=== PATIENT | male | born 1990 | race Caucasian/White ===

== ENCOUNTER 2018-03-31 16:30 | Emergency (ER) | payer OTHER ==
[2018-03-31 16:41] VITALS: PULSE 76; RESP 18; TEMP 98.2; O2SAT 99
--- NOTE | 2018-03-31 17:51 | ED PDOC ---
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 He states that he was assisting with an IV push when pressure built up and broke, splashing blood and saline onto himself. At present, he denies any medical complaints. PMD: non provided Past Medical History Reviewed: Historical Data, Nursing Documentation, Vital Signs Vital Signs: Last Vital Signs Temp 98.2 F 03/31/18 16:37 Pulse 76 03/31/18 16:37 Resp 18 03/31/18 16:37 BP Pulse Ox 99 03/31/18 18:01 - Medical History PMH: No Chronic Diseases - Surgical History Surgical History: No Surg Hx - Family History Family History: States: Unknown Family Hx - Home Medications Home Medications: Ambulatory Orders Medication Instructions Recorded Permethrin 5% [Permethrin 5% Cream] 60 gm EXT ONCE #0 tube 12/14/11 - Allergies Allergies/Adverse Reactions: Allergies Allergy/AdvReac Type Severity Reaction Status Date / Time No Known Allergies Allergy Verified 12/13/11 23:37 Review of Systems ROS Statement: Except As Marked, All Systems Reviewed And Found Negative Physical Exam - Reviewed Nursing Documentation Reviewed: Yes Vital Signs Reviewed: Yes - Physical Exam Appears: Positive for: No Acute Distress Head Exam: Positive for: ATRAUMATIC, NORMAL INSPECTION, NORMOCEPHALIC Skin: Positive for: Normal Color Eye Exam: Positive for: Normal appearance, EOMI, PERRL ENT: Positive for: Normal ENT Inspection Neck: Positive for: Normal Cardiovascular/Chest: Positive for: Regular Rate, Rhythm Respiratory: Positive for: Normal Breath Sounds. Negative for: Respiratory Distress Gastrointestinal/Abdominal: Positive for: Normal Exam, Soft. Negative for: Tenderness Extremity: Positive for: Normal ROM (upper/lower) Neurologic/Psych: Positive for: Alert (x3), biometric screener II-XII (grossly intact), Oriented, Gait (steady). Negative for: Motor/Sensory Deficits, Aphasia - ECG O2 Sat by Pulse Oximetry: 99 (RA) Pulse Ox Interpretation: Normal Medical Decision Making Medical Decision Making: Initial Impression: Body Fluid Exposure Initial Plan: * Hepatitis panel (acute) * Rapid HIV screen * RPR PT HIV (-) Source patient HIV (-) Scribe Attestation: Documented by Clary Ricardo, acting as a scribe for Marlene Mims PA-C. Provider Scribe Attestation: All medical record entries made by the Scribe were at my direction and personally dictated by me. I have reviewed the chart and agree that the record accurately reflects my personal performance of the history, physical exam, medical decision making, and the department course for this patient. I have also personally directed, reviewed, and agree with the discharge instructions and disposition. Disposition - Clinical Impression Clinical Impression: Exposure to blood - Patient ED Disposition Is Patient to be Admitted: No Counseled Patient/Family Regarding: Diagnosis, Need For Followup - Disposition Disposition: Routine/Home Disposition Time: 21:17 Condition: STABLE Instructions: Blood or Body Fluid Exposure Forms: [employer] ([place] Citizen)
[2018-03-31 21:23] LABS: HEPATITIS B SURFACE AG Negative (NEGATIVE)
[2018-03-31 21:28] LABS: HEPATITIS B CORE AB NEGATIVE (NEGATIVE)
[2018-03-31 21:41] LABS: HEPATITIS C ANTIBODY NEGATIVE (NEGATIVE)
[2018-03-31 22:17] LABS: HEPATITIS A IGM NEGATIVE (NEGATIVE)
== END 2018-03-31 21:44 | disposition home or self-care (01) ==
LOC: H.ER 16:30
DX: Z77.21 Contact with and (suspected) exposure to potentially hazardous body fluids (principal); Y99.0 Civilian activity done for income or pay

== ENCOUNTER 2018-07-30 09:33 | Emergency (ER) | payer OTHER ==
[2018-07-30 09:35] VITALS: BMI 27.4
[2018-07-30 09:37] VITALS: RESP 18
--- NOTE | 2018-07-30 09:57 | ED PDOC ---
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 Patient reports some nausea yesterday but no nausea now. Had subjective fever and chills last night. Denies any vomiting, dysuria, dizziness or blurry vision. Denies any recent abx use or recent trip outside of country. Patient's partner is sick with URI symptoms. PMHx: denies Surgical hx: denies Meds: multivitamin Allergies: NKDA Past Medical History Vital Signs: Last Vital Signs Temp 98.4 F 07/30/18 09:35 Pulse 76 07/30/18 09:35 Resp 18 07/30/18 09:35 BP 111/76 07/30/18 09:35 Pulse Ox 99 07/30/18 09:35 - Family History Family History: States: Unknown Family Hx - Home Medications Home Medications: Ambulatory Orders Medication Instructions Recorded Permethrin 5% [Permethrin 5% Cream] 60 gm EXT ONCE #0 tube 12/14/11 Dicyclomine [Bentyl] 20 mg PO QID PRN #10 tab 07/30/18 - Allergies Allergies/Adverse Reactions: Allergies Allergy/AdvReac Type Severity Reaction Status Date / Time No Known Allergies Allergy Verified 12/13/11 23:37 Review of Systems ROS Statement: Except As Marked, All Systems Reviewed And Found Negative Physical Exam - Physical Exam Appears: Positive for: Well, Non-toxic, No Acute Distress Head Exam: Positive for: ATRAUMATIC, NORMOCEPHALIC Skin: Positive for: Normal Color, Warm ENT: Positive for: Normal ENT Inspection Neck: Positive for: Normal, Painless ROM, Supple Cardiovascular/Chest: Positive for: Regular Rate, Rhythm. Negative for: Murmur Respiratory: Positive for: Normal Breath Sounds. Negative for: Rales, Rhonchi Gastrointestinal/Abdominal: Positive for: Bowel Sounds, Soft, Tenderness (Mild tenderness at the mid abdomen and RLQ, no rebound tenderness or guarding. ). Negative for: Distended, Guarding, Rebound Extremity: Negative for: Pedal Edema, Calf Tenderness Neurologic/Psych: Positive for: Alert, Oriented - Laboratory Results Result Diagrams: 07/30/18 10:16 07/30/18 10:16 - ECG O2 Sat by Pulse Oximetry: 99 - Progress ED Course And Treament: 27 yo Male presents with watery diarrhea and abdominal pain x 2 days. DDX include gastroenteritis, colitis, appendicitis Plan: CBC W/ DIFF CMP Lipase UA IVF's NS CT Abdomen and pelvis with IV contrast Bentyl 20 mg IM Time 1320 Patient reports he is feeling better and had one episode of diarrhea while in ED Labs reviewed CBC, CMP unremarkable UA shows moderate blood, advised patient to f/u with PMD ([facility] information prov ided) CT A/P shows IMPRESSION: Thickened bladder wall although decompressed suggests cystitis. Unilateral, left gynecomastia. Nonspecific findings in small bowel possibly early enteritis. No obstructing lesion. Advised patient to f/u outpatient for left gynecomastia. Patient is medically stable to discharge home with PO bentyl. Advised f/u with PMD in 2-3 days if diarrhea persists. Plan d/w Dr. Nixon Disposition - Clinical Impression Clinical Impression: Diarrhea, Microscopic hematuria, Breast mass in male - Disposition Referrals: [facility] [Outside] Disposition Time: 13:30 Condition: STABLE Prescriptions: Dicyclomine [Bentyl] 20 mg PO QID PRN #10 tab PRN Reason: Pain, Moderate (4-7) Instructions: Diarrhea in Adolescents and Adults, Blood in the Urine (Hematuria) in Adults Forms: [employer] (Polish)
[2018-07-30 10:40] LABS: BASO % 0.3 % (0.0-2.0); EOS # 0.1 K/uL (0.0-0.7); EOS % 0.9 % (0.0-4.0); HEMOGLOBIN 14.6 g/dL (12.0-18.0); LYMPH # 1.3 K/uL (1.0-4.3); LYMPH % 23.1 % (20.0-40.0); MEAN CELL VOLUME 87.3 fl (80.0-94.0); MEAN CORPUSCULAR HEMOGLOBIN 28.9 pg (27.0-31.0); MEAN CORPUSCULAR HGB CONC 33.2 g/dL (33.0-37.0); MEAN PLATELET VOLUME 7.4 fl (7.2-11.7); MONO # 0.7 K/uL (0.0-0.8); MONO % 13.1 % (0.0-10.0); NEUT # 3.4 K/uL (1.8-7.0); NEUT % 62.6 % (50.0-75.0); NRBC % 0.2 % (0.0-0.0); RBC 5.05 Mil/uL (4.40-5.90); RED CELL DISTRIBUTION WIDTH 14.1 % (11.5-14.5); WHITE BLOOD COUNT 5.5 K/uL (4.8-10.8)
[2018-07-30] MEDS: Sodium Chloride 0.9% 1,000 ML IV SCH ×2 (10:45→12:58)
[2018-07-30 10:48] LABS: INR 1.3; PROTHROMBIN TIME 14.2 Seconds (9.8-13.1)
[2018-07-30 10:51] LABS: PARTIAL THROMBOPLASTIN TIME 32.7 Seconds (25.6-37.1)
[2018-07-30 11:01] LABS: SQUAMOUS EPITHIAL 1 /hpf (0-5); URINE BACTERIA RARE (<OCC); URINE BILIRUBIN NEGATIVE (NEGATIVE); URINE BLOOD MODERATE (NEGATIVE); URINE CLARITY SLIGHTY-CLOUDY (Clear); URINE COLOR YELLOW (YELLOW); URINE GLUCOSE (UA) NEG (NEGATIVE); URINE HYALINE CAST 0-2 /hpf (0-2); URINE LEUKOCYTE ESTERASE NEG Leu/uL (Negative); URINE PROTEIN NEGATIVE (NEGATIVE); URINE UROBILINOGEN 0.2-1.0 mg/dL (0.2-1.0)
[2018-07-30 11:07] LABS: ALBUMIN 4.4 g/dL (3.5-5.0); BLOOD UREA NITROGEN 15 mg/dl (9-20); CALCIUM 9.2 mg/dL (8.4-10.2); GFR NON-AFRICAN AMERICAN > 60; LIPASE 43 U/L (23-300)
[2018-07-30 11:09] LABS: ALT/SGPT 27 U/L (21-72); AST/SGOT 35 U/L (17-59)
[2018-07-30] MEDS ORDERED: Iohexol 300 100 ML IJ ONE (11:23)
[2018-07-30] MEDS ORDERED: Sodium Chloride 0.9% 50 ML IV ONE (11:24)
--- NOTE | 2018-07-30 12:46 | CT ---
Date of service: 07/30/2018 PROCEDURE: CT Abdomen and Pelvis with contrast HISTORY: abdominal pain and diarrhea COMPARISON: Room TECHNIQUE: Intravenous contrast dose: 95 cc Omnipaque 300 Radiation dose: Total exam DLP = 628.93 mGy-cm. This CT exam was performed using one or more of the following dose reduction techniques: Automated exposure control, adjustment of the mA and/or kV according to patient size, and/or use of iterative reconstruction technique. FINDINGS: LOWER THORAX: Unremarkable. LIVER: Unremarkable. No gross lesion or ductal dilatation. GALLBLADDER AND BILE DUCTS: Unremarkable. PANCREAS: Unremarkable. No gross lesion or ductal dilatation. SPLEEN: Unremarkable. ADRENALS: Unremarkable. No mass. KIDNEYS AND URETERS: Unremarkable. No hydronephrosis. No solid mass. VASCULATURE: Unremarkable. No aortic aneurysm. No atherosclerotic calcification or mural plaque present. BOWEL: Fluid-filled nondistended non obstructing small bowel. APPENDIX: No abnormalities to suggest acute appendicitis. No right lower quadrant inflammatory processes identified. PERITONEUM: Unremarkable. No free fluid. No free air. LYMPH NODES: Unremarkable. No enlarged lymph nodes. BLADDER: Diffuse bladder wall thickening. However the bladder is nearly empty and therefore this may be relate to the decompressed state. Cystitis should be considered REPRODUCTIVE: Unremarkable. BONES: No acute fracture. OTHER FINDINGS: Gynecomastia/left breast mass incompletely visible. Elective follow-up recommended. The mass measures 1.5 x 3.3 cm IMPRESSION: Thickened bladder wall although decompressed suggests cystitis. Unilateral, left gynecomastia. Nonspecific findings in small bowel possibly early enteritis. No obstructing lesion.
[2018-07-30 13:41] VITALS: BP 109/71; PULSE 66; TEMP 98.3; O2SAT 100
== END 2018-07-30 14:07 | disposition home or self-care (01) ==
LOC: H.ER 09:33
DX: R19.7 Diarrhea, unspecified (principal); R31.29 Other microscopic hematuria; N62 Hypertrophy of breast
CPT/HCPCS: 74177; 80053; 81003; 83690; 85025; 85610; 85730; 96360; 96361; 96372; 99283; J0500; J7030; Q9967